=== PATIENT | male | born 1980 | race Caucasian/White ===

== ENCOUNTER 2020-11-18 15:07 | Emergency (ER) | payer OTHER ==
[~2020-11-18] VITALS: Ht 193 cm; Wt 122.5 kg
[2020-11-18] MEDS ORDERED: IV NORMAL SALINE 1000 ML BAG IV ONE (15:45)
--- NOTE | 2020-11-18 15:45 | NUR ---
Dr Rausch at bedside for MSE.
[2020-11-18] MEDS ORDERED: METFORMIN HCL 500 MG TABLET ONE (16:06)
[2020-11-18 16:10] LABS: BASOPHILS # (AUTO) 0.1 K/uL (0.0-8.0); BASOPHILS % (AUTO) 0.7 % (0.0-2.0); EOSINOPHILS # (AUTO) 0.1 K/uL (0.0-0.7); EOSINOPHILS % (AUTO) 1.1 % (0.0-7.0); HEMATOCRIT 48.2 % (36.7-47.1); HEMOGLOBIN 16.2 g/dL (12.5-16.3); LYMPHOCYTES # (AUTO) 2.5 K/uL (20.0-40.0); MEAN CORPUSCULAR HEMOGLOBIN 27.9 uug (23.8-33.4); MEAN CORPUSCULAR HGB CONC 34 g/dL (32.5-36.3); MEAN CORPUSCULAR VOLUME 83.2 fL (73.0-96.2); MONOCYTES # (AUTO) 0.4 K/uL (2.0-10.0); MONOCYTES % (AUTO) 4.7 % (0.0-11.0); NEUTROPHILS # (AUTO) 5.9 K/uL (1.8-8.9); NEUTROPHILS % (AUTO) 65.5 % (38.5-71.5); PLATELET COUNT (AUTO) 269 K/uL (152-348); RED BLOOD CELL COUNT(AUTO) 5.79 MIL/uL (4.06-5.63)
[2020-11-18] MEDS ORDERED: METFORMIN HCL 500 MG TABLET PO ONE (16:15)
[2020-11-18 16:18] LABS: BILIRUBIN,TOTAL 0.4 mg/dL (0.2-1.0); TOTAL PROTEIN, SERUM 7.6 g/dL (6.4-8.2)
[2020-11-18] MEDS ORDERED: INSU100V39 SQ (16:28)
[2020-11-18] MEDS ORDERED: METF-442 PO (16:28)
[2020-11-18] MEDS ORDERED: INSU100V7 SQ ×2 (16:28→16:41)
[2020-11-18] MEDS ORDERED: SYRI1DIS86 MC (16:43)
[2020-11-18] MEDS ORDERED: BLOO-1451 MC (16:43)
--- NOTE | 2020-11-18 17:00 | NUR ---
Rechecked BS: 317 after PO fluids and Metformin 1000 mg PO. Pt has been cleared for DC by ER provider. Written and verbal after care instructions given, along with prescriptions. Stressed follow up with PCP for DM maintenance, along with future medication refills. Return to ER or call 911 for worsening/emergency s/s of hypo/hyperglycemia. Patient verbalizes understanding of instructions. Ambulated out of ED in steady gait.
[2020-11-18 17:03] VITALS: BP 115/70
== END 2020-11-18 17:06 | disposition home or self-care (01) ==
LOC: ER 15:07
DX: E11.65 Type 2 diabetes mellitus with hyperglycemia (principal); Z91.14 Patient's other noncompliance with medication regimen; Z79.4 Long term (current) use of insulin
CPT/HCPCS: 36415; 85025; A4663; J7030